=== PATIENT | male | born 2000 | race Asian ===

== ENCOUNTER 2018-02-08 12:18 | Emergency (ER) | payer SELFPAY ==
[2018-02-08 13:12] LABS: ADD MAN DIFF? NO
[2018-02-08 13:15] LABS: BASO % 0 % (0-3); EOS % 0 % (0-3); HEMATOCRIT 46.3 % (39.0-53.0); LYMPH # 2.4 x10^3/uL (1.0-4.8); LYMPH % 18 % (24-48); MEAN CORPUSCULAR HEMOGLOBIN 29 pg (25-35); MEAN CORPUSCULAR HGB CONC 35 g/dL (31-37); MEAN CORPUSCULAR VOLUME 85 fL (79-100); MONO % 8 % (0-9); NEUT # 9.6 x10^3uL (1.8-7.7); NEUT % 74 % (31-73); PLATELET COUNT 159 x10^3/uL (140-400); RED BLOOD COUNT 5.47 x10^6/uL (4.30-5.70); RED CELL DISTRIBUTION WIDTH 13.6 % (11.5-14.5)
[2018-02-08] MEDS: ACETAMINOPHEN 325 MG TABLET. PO (13:19)
[2018-02-08] MEDS: DEXAMETHASONE SOD PHOS 4 MG/ML VIAL IV (13:19)
[2018-02-08 13:27] LABS: MONONUCLEOSIS PATIENT NEGATIVE (NEGATIVE); NEGATIVE OBC MONO NEG; POSITIVE OBC MONO POS
[2018-02-08 13:34] LABS: MAGNESIUM 1.8 mg/dL (1.8-2.4)
[2018-02-08 13:34] LABS: ANION GAP 11 (6-14); BLOOD UREA NITROGEN 9 mg/dL (8-26); BUN/CREATININE RATIO 8 (6-20); CARBON DIOXIDE 27 mmol/L (21-32); CHLORIDE 99 mmol/L (98-107); CREATININE 1.1 mg/dL (0.7-1.3); GFR 86.2; GLUCOSE 108 mg/dL (70-99); POTASSIUM 3.2 mmol/L (3.5-5.1); SODIUM 137 mmol/L (136-145)
[2018-02-08 13:40] LABS: ALBUMIN 3.9 g/dL (3.4-5.0); ALBUMIN/GLOBULIN RATIO 0.8 (1.0-1.7); ALK PHOS 308 U/L (46-116); ALT (SGPT) 135 U/L (16-63); AST (SGOT) 128 U/L (15-37); TOTAL BILIRUBIN 0.9 mg/dL (0.2-1.0); TOTAL PROTEIN 8.6 g/dL (6.4-8.2)
[2018-02-08 13:42] LABS: LACTIC ACID 1.5 mmol/L (0.4-2.0)
[2018-02-08 13:56] LABS: NEGATIVE OBC STREP NEG; POSITIVE OBC STREP POS
[2018-02-08 15:48] LABS: BILIRUBIN,URINE NEGATIVE (NEG); CLARITY,URINE CLEAR; COLOR,URINE YELLOW; GLUCOSE,URINE NEGATIVE (NEG); NITRITE,URINE NEGATIVE (NEG); PROTEIN,URINE NEGATIVE (NEG-TRACE)
[2018-02-08 15:55] LABS: BACTERIA,URINE 0 /HPF (0-FEW); RBC,URINE OCC /HPF (0-2); SQUAMOUS EPITHELIAL CELL,UR OCC /LPF; WBC,URINE 0 /HPF (0-4)
[2018-02-08] MEDS: AMOXICILLIN/K CLAV 875/125MG TABLET. PO (16:13)
== END 2018-02-08 16:20 | disposition home or self-care (01) ==
LOC: ER 12:18
DX: J02.9 Acute pharyngitis, unspecified (principal); J35.1 Hypertrophy of tonsils; Z72.0 Tobacco use
CPT/HCPCS: 36415; 71046; 80053; 81001; 83605; 83735; 85025; 86308; 87070; 87880; 96374; 99285-25; J1100

== ENCOUNTER 2018-03-25 22:26 | Emergency (ER) | payer SELFPAY ==
[2018-02-08 12:18] VITALS: BP 123/63
[~2018-03-25 22:26] MED LIST: AMOX1TAB61 PO
== END 2018-03-25 22:37 | disposition left against medical advice (07) ==
LOC: ER 22:26
DX: R50.9 Fever, unspecified (principal); J02.9 Acute pharyngitis, unspecified; Z53.21 Procedure and treatment not carried out due to patient leaving prior to being seen by health care provider

== ENCOUNTER 2020-10-07 14:39 | Emergency (ER) | payer SELFPAY ==
[~2020-10-07] VITALS: Ht 162.6 cm; Wt 59.1 kg
--- NOTE | 2020-10-07 15:26 | RAD ---
EXAM: Lumbar spine, 3 views. HISTORY: Fall. Pain. COMPARISON: None. FINDINGS: 3 views of the lumbar spine are obtained. 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 There is sacraliz ation of the left L5 transverse process resulting in articulation with the left sacrum, a normal vari ant. There is minimal S-shaped lumbar scoliosis. There is no listhesis. The vertebral bodies are norm al in height and the disc spaces are preserved. There is a metallic foreign body overlying the right inguinal region. This is external to the patient. IMPRESSION: 1. No acute osseous finding. 2. Minimal scoliosis. 3. Hypoplastic T12 ribs and slight sacralization of the L5 segment, both which are normal variants. Electronically signed by: Jane Huizar MD (10/07/2020 3:23 PM) [id number]
[2020-10-07] MEDS ORDERED: CYCL10TA2 PO (15:47)
[2020-10-07] MEDS ORDERED: NAPR-514 PO (15:47)
--- NOTE | 2020-10-07 15:47 | PHYS DOC ---
Past Medical History Past Medical History: No Pertinent History Past Surgical History: No Surgical History Smoking Status: Light Tobacco Smoker Alcohol Use: Occasionally Drug Use: None General Adult EDM: Chief Complaint: BACK PAIN - NO INJURY HPI: HPI: Patient is a 20 year old male who presents the ED today complaining of mild intermittent low back pain that began a week ago after he fell at work. Patient denies any pain radiating to bilateral lower extremities. Denies any loss of bowel or bladder function. Describes the pain as throbbing and intermittent worse on touching his low back. Patient is also complaining of a slight headache that began this morning that he believes is from the weather change. Denies any photophobia, nausea vomiting. Review of Systems: Review of Systems: Constitutional: Denies fever or chills. [] GI: Denies abdominal pain, nausea, vomiting, bloody stools or diarrhea. [] : Denies dysuria. [] Musculoskeletal: Reports low back pain Integument: Denies rash. [] Neurologic: Reports headache, denies focal weakness or sensory changes. [] Psychiatric: Denies depression or anxiety. [] Heart Score: C/O Chest Pain: N/A Risk Factors: Risk Factors: DM, Current or recent (<one month) smoker, HTN, HLP, family history of CAD, obesity. Risk Scores: Score 0 - 3: 2.5% MACE over next 6 weeks - Discharge Home Score 4 - 6: 20.3% MACE over next 6 weeks - Admit for Clinical Observation Score 7 - 10: 72.7% MACE over next 6 weeks - Early Invasive Strategies Allergies: Allergies: Allergies Coded Allergies Type Severity Reaction Last Updated Verified No Known Drug Allergies 02/08/18 No Physical Exam: PE: Constitutional: Well developed, well nourished, no acute distress, non-toxic appearance. [] Abdomen: Bowel sounds normal, soft, no tenderness, no masses, no pulsatile masses. [] Skin: Warm, dry, no erythema, no rash. [] Back: No tenderness, no CVA tenderness. [] Extremities: Diffuse paraspinal muscle tenderness to bilateral lumbar spine tenderness, no cyanosis, no clubbing, ROM intact, no edema. [] Neurologic: Alert and oriented X 3, normal motor function, normal sensory func tion, no focal deficits noted. Cranial nerves II through XII intact Psychologic: Affect normal, judgement normal, mood normal. [] Current Patient Data: Vital Signs: Vital Signs Date Time Temp Pulse Resp B/P (MAP) Pulse Ox O2 Delivery O2 Flow Rate FiO2 10/07/20 14:52 97.3 78 16 119/61 (80) 99 Room Air 97.3 EKG: EKG: [] Radiology/Procedures: Radiology/Procedures: []PROCEDURE: LUMBAR SPINE 2-3V EXAM: Lumbar spine, 3 views. HISTORY: Fall. Pain. COMPARISON: None. FINDINGS: 3 views of the lumbar spine are obtained. 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 There is sacralization of the left L5 transverse process resulting in articulation with the left sacrum, a normal variant. There is minimal S-shaped lumbar scoliosis. There is no listhesis. The vertebral bodies are normal in height and the disc spaces are preserved. There is a metallic foreign body overlying the right inguinal region. This is external to the patient. IMPRESSION: 1. No acute osseous finding. 2. Minimal scoliosis. 3. Hypoplastic T12 ribs and slight sacralization of the L5 segment, both which are normal variants. Electronically signed by: Jane Huizar MD (10/07/2020 3:23 PM) [id number] DICTATED and SIGNED BY: JANE HUIZAR MD DATE: 10/07/20 [id number] 0 Course & Med Decision Making: Course & Med Decision Making Pertinent Labs and Imaging studies reviewed. (See chart for details) This is a 20-year-old male patient presented to the ED today with low back pain after falling. No loss of consciousness. Fall occurred a week ago. Xrays of the lumbar spine negative. Also complaining of a headache did not hit his head. D/c to home Dragon Disclaimer: Dragon Disclaimer: This electronic medical record was generated, in whole or in part, using a voice recognition dictation system. Departure Departure Impression: Primary Impression: Fall Qualified Codes: W19.XXXA - Unspecified fall, initial encounter Additional Impressions: Back pain Qualified Codes: M54.5 - Low back pain Headache Qualified Codes: R51.9 - Headache, unspecified Disposition: 01 DC HOME SELF CARE/HOMELESS Condition: STABLE Referrals: NO PCP (PCP) follow up with your doctor in 1 week Patient Instructions: Back Pain, Adult, Fall Prevention and Home Safety, Headache, FAQs Additional Instructions: You were seen for back pain and headache. Please take the medicines ordered as prescribed. Scripts Naproxen (NAPROXEN) 500 Mg Tablet 1 TAB PO BID for pain for 30 Days, #60 TAB 0 Refills Prov: REMEDIOS HEAD APRN 10/07/20 Cyclobenzaprine Hcl (CYCLOBENZAPRINE HCL) 10 Mg Tablet 1 TAB PO TID, #30 TAB Prov: REMEDIOS HEAD APRN 10/07/20 REMEDIOS HEAD APRN Oct 07, 2020 15:47
[2020-10-07 15:58] VITALS: BP 111/60
== END 2020-10-07 15:58 | disposition home or self-care (01) ==
LOC: ER 14:39
DX: G89.11 Acute pain due to trauma (principal); M54.5 Low back pain; R51.9 Headache, unspecified; Z87.891 Personal history of nicotine dependence; W18.39XA Other fall on same level, initial encounter; Y93.89 Activity, other specified; Y92.89 Other specified places as the place of occurrence of the external cause; Y99.8 Other external cause status
CPT/HCPCS: 72100; 99283